=== PATIENT | female | born 1960 | race Asian ===

== ENCOUNTER 2023-07-06 12:34 | Day surgery (SDC) | payer BC ==
[~2023-07-06] VITALS: Ht 154.9 cm; Wt 59.8 kg
[~2023-07-06 12:34] MED LIST: CALCA500CH PO; CHOL10002 PO; FISH1000 PO; GLUCHON PO; RED YEAST; TELM20 PO; THYR60 PO
[2023-07-06] MEDS ORDERED: ATOR10 (13:03)
[2023-07-06] MEDS ORDERED: Amlodipine Bes2.5 MG (13:03)
[2023-07-06 14:45] VITALS: BP 132/85
== END 2023-07-06 14:40 | disposition home or self-care (01) ==
LOC: ORSCSDS 12:34
PROVIDERS: Surgery
PROC: 0DBN8ZX Excision of Sigmoid Colon, Via Natural or Artificial Opening Endoscopic, Diagnostic (ICD-10-PCS; principal; 2023-07-06 13:45)
DX: Z12.11 Encounter for screening for malignant neoplasm of colon (principal); D12.5 Benign neoplasm of sigmoid colon; K64.1 Second degree hemorrhoids; E03.9 Hypothyroidism, unspecified; I12.9 Hypertensive chronic kidney disease with stage 1 through stage 4 chronic kidney disease, or unspecified chronic kidney disease; N18.32 Chronic kidney disease, stage 3b; Z79.899 Other long term (current) drug therapy
CPT/HCPCS: 88305; J2704; J7120